=== PATIENT | female | born 1985 ===

== ENCOUNTER 2018-01-09 11:47 | Emergency (ER) | payer MEDICAID, OTHER ==
[2018-01-09 11:54] VITALS: BP 118/88; PULSE 90; RESP 16; TEMP 98.2; O2SAT 98
[2018-01-09] MEDS ORDERED: Diclofenac Sodium Delayed Release 50 mg EC Tab PO STA (12:16)
--- NOTE | 2018-01-09 12:21 | C.PDOC ---
History Of Present Illness 32 yo female comes to ER for evaluation after a fall while she was at work. 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 She reports a history of chronic pain in her legs, especially in her joints including her knees, worsening over the past 2 years. She states she has been seeing with an director intelligence analysis programs who recently did bloodwork and patient has also had an MRI of her lumbar spine. Otherwise she denies any other injuries, numbness, low back or buttock/hip pain. Time Seen by Provider: 01/09/18 11:55 Chief Complaint (Nursing): Lower Extremity Problem/Injury History Per: Patient History/Exam Limitations: no limitations Onset/Duration Of Symptoms: Persistent Current Symptoms Are (Timing): Still Present Severity: Mild Additional History Per: Patient Past Medical History Reviewed: Historical Data, Nursing Documentation, Vital Signs Vital Signs: Last Vital Signs Temp 98.2 F 01/09/18 11:51 Pulse 90 01/09/18 11:51 Resp 16 01/09/18 11:51 BP 118/88 01/09/18 11:51 Pulse Ox 98 01/09/18 14:28 - Medical History Other PMH: chronic leg pain Surgical History: Tonsillectomy - [facility] MONITORING NOS (04/06/13) INJECT/INFUSE NEC (03/28/14) Family History: States: Diabetes (Father) - Social History Hx Alcohol Use: No Hx Substance Use: Yes Review Of Systems Constitutional: Negative for: Fever, Chills Cardiovascular: Negative for: Chest Pain Respiratory: Negative for: Shortness of Breath Gastrointestinal: Negative for: Vomiting, Abdominal Pain, Diarrhea Musculoskeletal: Positive for: Back Pain, Leg Pain, Other (knee pain) Neurological: Negative for: Weakness, Numbness Physical Exam - Physical Exam Appears: Well, Non-toxic, No Acute Distress Skin: Normal Color, Warm, Dry, No Rash Head: Atraumatic, Normacephalic, No Tenderness, No Swelling, No Abrasion, No Laceration Eye(s): bilateral: Normal Inspection Oral Mucosa: Moist Neck: Supple Cardiovascular: Rhythm Regular Respiratory: Normal Breath Sounds, No Rales, No Rhonchi, No Wheezing Gastrointestinal/Abdominal: Normal Exam, Bowel Sounds, Soft, No Tenderness Back: Normal Inspection, No CVA Tenderness, No Vertebral Tenderness, No Muscle Spasm, No Paraspinal Tenderness Extremity: Normal ROM, Tenderness (mild diffuse tenderness to lower legs and knees. no swelling, erythema or deformities ), No Pedal Edema, No Calf Tenderness, Capillary Refill (< 2 seconds), No Deformity, No Swelling Pulses: Left Dorsalis Pedis: Normal, Right Dorsalis Pedis: Normal Neurological/Psych: Oriented x3, Normal Motor (5/5 motot strength B/L LEs), Normal Sensation (B/L LEs) Gait: Steady ED Course And Treatment O2 Sat by Pulse Oximetry: 98 (RA) Pulse Ox Interpretation: Normal Progress Note: Patient given Diclofenac 75mg PO in ER, and Rx for same. Instructed patient to follow up with her director intelligence analysis programs for results of exntensive blood work that was done recently. Patient reports understanding and is agreeable for discharge home. She is ambualting normally in the ED. Patient understands she should return to ED if symptoms worsen. Reevaluation Time: 12:40 Reassessment Condition: Improved Disposition Counseled Patient/Family Regarding: Diagnosis, Need For Followup, Rx Given - Disposition Referrals: 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 I have reviewed the chart and agree that the record accurately reflects my personal performance of the history, physical exam, medical decision making, and the department course for this patient. I have also personally directed, reviewed, and agree with the discharge instructions and disposition.
[2018-01-09] MEDS ORDERED: Diclofenac Sodium Delayed Release 75 mg EC Tab PO ONE (12:30)
== END 2018-01-09 12:51 | disposition home or self-care (01) ==
LOC: C.ER 11:47
DX: M13.0 Polyarthritis, unspecified (principal); W18.39XA Other fall on same level, initial encounter; Y93.01 Activity, walking, marching and hiking; Y92.89 Other specified places as the place of occurrence of the external cause; Y99.0 Civilian activity done for income or pay